=== PATIENT | male | born 1935 | race Caucasian/White ===

== ENCOUNTER → 2016-09-25 | Outpatient (REF) | payer MEDICARE ==
[~2016-09-25] MED LIST: /HCTZ25TA OR; AMLO2.5T PO; ASPI81TA85 PO; BOOSLIQ PO; CALCTAB29 PO; COLA100C PO; CORE10CA PO; COUM7.5T PO; DONETAB6 PO; FE T325T PO; FOLI1TAB86 PO; GLUCTAB2 PO; INSUH10VL SC; LOPR1TAB6 PO; METF850T PO; MILKSUS PO; MIRA3350 PO; NIFE15CA PO; PERCOCET PO; SENO8.6T2 PO; TYLE325T5 PO; VASO20TA11 PO; VASO5TAB11 PO; VITA10002 PO; VITA100L PO; ZOCO40TA PO
--- NOTE | 2016-09-25 15:35 | REP ---
Portable chest x-ray: Sitting AP view. History: Cough and congestion. Comparison study March 30, 2014. Findings: The patient is rotated somewhat to the left similar to the prior study. The lungs are symmetrically aerated and no infiltrate is seen. Pleural angles are sharp. Cardiomediastinal silhouette is unremarkable and unchanged. Pulmonary vasculature is not increased. Impression: No acute disease. Signed by Seth Hooper MD 09/25/2016 05:14 P
== END ==
LOC: SKLAB4 14:47
PROVIDERS: ATTEND Family Medicine
DX: R05 Cough (principal)

== ENCOUNTER → 2016-10-10 | Outpatient (REF) | payer MEDICARE ==
[2016-10-10 11:02] LABS: MEAN CORPUSCULAR HEMOGLOBIN 31.5 pg (27.0-33.0); MEAN CORPUSCULAR HGB CONC 32.9 g/dl (32.0-36.5); MEAN CORPUSCULAR VOLUME 95.9 fl (80.0-96.0); RED CELL DISTRIBUTION WIDTH 12.6 % (11.5-14.5); WHITE BLOOD COUNT 13.8 K/mm3 (4.0-10.0)
[2016-10-10 11:25] LABS: ANION GAP 8 MEQ/L (8-16); BLOOD UREA NITROGEN 54 MG/DL (7-18); CALCIUM LEVEL 9.6 MG/DL (8.8-10.2); CARBON DIOXIDE LEVEL 28 MEQ/L (21-32); CHLORIDE LEVEL 115 MEQ/L (98-107); CREATININE FOR GFR 1.23 MG/DL (0.70-1.30); GLOMERULAR FILTRATION RATE > 60.0 (>35); GLUCOSE, FASTING 228 MG/DL (83-110); SODIUM LEVEL 151 MEQ/L (136-145)
[2016-10-10 11:28] LABS: POTASSIUM SERUM 5.2 MEQ/L (3.5-5.1)
== END ==
LOC: SKLAB4 10:32
PROVIDERS: ATTEND Family Medicine
DX: R63.0 Anorexia (principal)

== ENCOUNTER → 2016-10-11 | Outpatient (REF) | payer MEDICARE ==
[2016-10-11 07:56] LABS: CALCIUM LEVEL 8.6 MG/DL (8.8-10.2); CREATININE FOR GFR 1.34 MG/DL (0.70-1.30); GLOMERULAR FILTRATION RATE 54.6 (>35); POTASSIUM SERUM 4.5 MEQ/L (3.5-5.1)
== END ==
LOC: SKLAB4 03:02
PROVIDERS: ATTEND Family Medicine
DX: R79.9 Abnormal finding of blood chemistry, unspecified (principal)

== ENCOUNTER → 2016-10-12 | Outpatient (REF) | payer MEDICARE ==
[2016-10-12 12:42] LABS: ANION GAP 12 MEQ/L (8-16); BLOOD UREA NITROGEN 32 MG/DL (7-18); CALCIUM LEVEL 8.1 MG/DL (8.8-10.2); CARBON DIOXIDE LEVEL 21 MEQ/L (21-32); CHLORIDE LEVEL 110 MEQ/L (98-107); CREATININE FOR GFR 0.62 MG/DL (0.70-1.30); GLUCOSE, FASTING 87 MG/DL (83-110); POTASSIUM SERUM 4.1 MEQ/L (3.5-5.1); SODIUM LEVEL 143 MEQ/L (136-145)
[2016-10-12 12:45] LABS: GLOMERULAR FILTRATION RATE > 60.0 (>35)
== END ==
LOC: SKLAB4 11:03
PROVIDERS: ATTEND Family Medicine
DX: D64.9 Anemia, unspecified (principal)

== ENCOUNTER → 2016-10-13 | Outpatient (REF) | payer MEDICARE ==
[2016-10-13 08:33] LABS: ANION GAP 8 MEQ/L (8-16); BLOOD UREA NITROGEN 19 MG/DL (7-18); CALCIUM LEVEL 8.3 MG/DL (8.8-10.2); CARBON DIOXIDE LEVEL 25 MEQ/L (21-32); CHLORIDE LEVEL 108 MEQ/L (98-107); CREATININE FOR GFR 0.64 MG/DL (0.70-1.30); GLOMERULAR FILTRATION RATE > 60.0 (>35); GLUCOSE, FASTING 196 MG/DL (83-110); POTASSIUM SERUM 3.9 MEQ/L (3.5-5.1); SODIUM LEVEL 141 MEQ/L (136-145)
== END ==
LOC: SKLAB4 06:40
PROVIDERS: ATTEND Family Medicine
DX: E86.0 Dehydration (principal)

== ENCOUNTER → 2016-10-14 | Outpatient (REF) | payer MEDICARE | LOC: SKLAB4 14:54 | PROVIDERS: ATTEND Family Medicine | DX: R79.9 Abnormal finding of blood chemistry, unspecified (principal) ==

== ENCOUNTER → 2016-10-16 | Outpatient (REF) | payer MEDICARE ==
[2016-10-16 10:14] LABS: ANION GAP 11 MEQ/L (8-16); BLOOD UREA NITROGEN 3 MG/DL (7-18); CALCIUM LEVEL 8.1 MG/DL (8.8-10.2); CARBON DIOXIDE LEVEL 25 MEQ/L (21-32); CHLORIDE LEVEL 110 MEQ/L (98-107); CREATININE FOR GFR 0.54 MG/DL (0.70-1.30); GLOMERULAR FILTRATION RATE > 60.0 (>35); GLUCOSE, FASTING 128 MG/DL (83-110); POTASSIUM SERUM 4.1 MEQ/L (3.5-5.1); SODIUM LEVEL 146 MEQ/L (136-145)
== END ==
LOC: SKLAB4 06:14
PROVIDERS: ATTEND Family Medicine
DX: I50.32 Chronic diastolic (congestive) heart failure (principal)

== ENCOUNTER → 2016-10-20 | Outpatient (REF) | payer MEDICARE ==
[2016-10-20 10:03] LABS: ANION GAP 8 MEQ/L (8-16); BLOOD UREA NITROGEN 11 MG/DL (7-18); CALCIUM LEVEL 8.9 MG/DL (8.8-10.2); CARBON DIOXIDE LEVEL 29 MEQ/L (21-32); CHLORIDE LEVEL 108 MEQ/L (98-107); CREATININE FOR GFR 0.56 MG/DL (0.70-1.30); GLOMERULAR FILTRATION RATE > 60.0 (>35); GLUCOSE, FASTING 98 MG/DL (83-110); POTASSIUM SERUM 4.4 MEQ/L (3.5-5.1); SODIUM LEVEL 145 MEQ/L (136-145)
== END ==
LOC: SKLAB4 08:57
PROVIDERS: ATTEND Family Medicine
DX: E86.0 Dehydration (principal)

== ENCOUNTER → 2016-11-09 | Outpatient (REF) | payer MEDICARE ==
[2016-11-09 09:21] LABS: ANION GAP 5 MEQ/L (8-16); BLOOD UREA NITROGEN 13 MG/DL (7-18); CALCIUM LEVEL 8.9 MG/DL (8.8-10.2); CARBON DIOXIDE LEVEL 32 MEQ/L (21-32); CHLORIDE LEVEL 108 MEQ/L (98-107); CREATININE FOR GFR 0.65 MG/DL (0.70-1.30); GLOMERULAR FILTRATION RATE > 60.0 (>35); GLUCOSE, FASTING 100 MG/DL (83-110); POTASSIUM SERUM 4.1 MEQ/L (3.5-5.1); SODIUM LEVEL 145 MEQ/L (136-145)
== END ==
LOC: SKLAB4 09:18
PROVIDERS: ATTEND Family Medicine
DX: E86.0 Dehydration (principal)

== ENCOUNTER → 2016-11-14 | Outpatient (REF) | payer MEDICARE ==
[2016-11-14 12:27] LABS: MEAN CORPUSCULAR HEMOGLOBIN 32.1 pg (27.0-33.0); MEAN CORPUSCULAR HGB CONC 31.7 g/dl (32.0-36.5); MEAN CORPUSCULAR VOLUME 101.2 fl (80.0-96.0); RED CELL DISTRIBUTION WIDTH 13.7 % (11.5-14.5); WHITE BLOOD COUNT 10.9 K/mm3 (4.0-10.0)
[2016-11-14 13:06] LABS: CALCIUM LEVEL 9.1 MG/DL (8.8-10.2); CREATININE FOR GFR 1.77 MG/DL (0.70-1.30); GLOMERULAR FILTRATION RATE 39.6 (>35); POTASSIUM SERUM 4.9 MEQ/L (3.5-5.1)
== END ==
LOC: SKLAB4 09:25
PROVIDERS: ATTEND Family Medicine
DX: E86.0 Dehydration (principal)